=== PATIENT | female | born 1950 | race Caucasian/White ===

== ENCOUNTER 2019-01-26 16:34 | Emergency (ER) | payer MEDICARE, BC ==
[~2019-01-26] VITALS: Ht 167.6 cm; Wt 75.0 kg
[2019-01-26 17:50] LABS: BASOPHILS % (AUTO) 0.5 % (0-1); EOSINOPHILS # (AUTO) 0.1 X10'3 (0-0.9); EOSINOPHILS % (AUTO) 1.4 % (0-6); HEMATOCRIT 39.1 % (35.0-45.0); HEMOGLOBIN 12.9 g/dl (12.0-16.0); LYMPHOCYTES # (AUTO) 1.9 X10'3 (1.1-4.8); LYMPHOCYTES % (AUTO) 22.1 % (21-51); MEAN CORPUSCULAR HEMOGLOBIN 28.9 PG (27.0-31.0); MEAN CORPUSCULAR HGB CONC 32.9 g/dL (33.0-36.5); MEAN CORPUSCULAR VOLUME 87.9 FL (78-98); MEAN PLATELET VOLUME 7.8 FL (7.4-10.4); MONOCYTES # (AUTO) 0.5 X10'3 (0-0.9); MONOCYTES % (AUTO) 6.1 % (2-12); NEUTROPHILS % (AUTO) 69.9 % (42-75); PLATELET COUNT 308 X10'3 (140-440); RED BLOOD COUNT 4.45 X10'6 (4.20-5.60); RED CELL DISTRIBUTION WIDTH 12.8 % (11.5-14.5); WHITE BLOOD COUNT 8.6 X10'3 (4.5-11.0)
[2019-01-26 18:02] LABS: ALANINE AMINOTRANSFERASE 61 U/L (12-78); ALBUMIN 3.6 G/DL (3.4-5.0); ALKALINE PHOSPHATASE 136 IU/L (46-116); ANION GAP 10 (8-16); ASPARTATE AMINO TRANSFERASE 35 U/L (10-37); BILIRUBIN,TOTAL 0.3 MG/DL (0.1-1.0); BLOOD UREA NITROGEN 26 MG/DL (7-18); C-REACTIVE PROTEIN 0.75 MG/DL (0.0-0.5); CALCIUM 9.2 MG/DL (8.5-10.1); CHLORIDE 104 MMOL/L (99-107); CREATININE 0.84 MG/DL (0.40-0.90); GLUCOSE 97 MG/DL (70-104); POTASSIUM 4.2 MMOL/L (3.5-5.1); SODIUM 138 MMOL/L (135-145); TOTAL CARBON DIOXIDE 23.8 MMOL/L (24-32); TOTAL PROTEIN 7.1 G/DL (6.4-8.2); eGFR 68 ML/MIN
[2019-01-26] MEDS ORDERED: HYDROmorphone 2mg tablet PO ONE (19:40)
[2019-01-26] MEDS ORDERED: naproxen 500mg tablet PO ONE (19:40)
--- NOTE | 2019-01-26 19:52 | NUR ---
YOMAIRA PO DILAUDID 2 MG AND NAPROXIN 500 MG FOR PAIN TO L KNEE 10 OUT OF 10. PT REPORTS TAKING DILAUDID AFTER THE SURGERY WITH NO RELIEF. USING PERSCRIPTION NORCO 10/325 1-2 TABS PRN AND THIS IS NOT HELPING HER PAIN. FAMILY AT BEDSIDE. PT WITH STABLE VS.
--- NOTE | 2019-01-26 20:09 | NUR ---
LEFT KNEE DRESING REMOVED. DR. VERGARA AT BEDSIDE.
[2019-01-26] MEDS ORDERED: meperidine/PF 100mg/ml syringe IM STA (20:36)
[2019-01-26] MEDS ORDERED: meperidine/PF 50mg/ml syringe IM STA (20:53)
[2019-01-26] MEDS ORDERED: HYDR-4353 PO (21:41)
[2019-01-26 22:03] VITALS: BP 136/85
== END 2019-01-26 22:05 | disposition home or self-care (01) ==
LOC: ER 16:35
DX: G89.18 Other acute postprocedural pain (principal); M25.562 Pain in left knee; M25.462 Effusion, left knee; G89.29 Other chronic pain; Z98.890 Other specified postprocedural states; Z79.899 Other long term (current) drug therapy
CPT/HCPCS: 36415; 73560; 80053; 85025; 85651; 86140; 93971; 96372; 99284; J2175